=== PATIENT | female | born 1995 | race African-American/Black ===

== ENCOUNTER 2016-09-11 15:08 | Inpatient (IN) | payer MEDICAID ==
[~2016-09-11] VITALS: Ht 154.9 cm; Wt 84.1 kg
[2016-09-27] MEDS ORDERED: PRENATAL MVI (22:21)
[2016-10-08] VITALS (40 sets, daily range): BP systolic 83–146; BP diastolic 6–91; PULSE 80–139; TEMP 97.9–99
[2016-10-08] MEDS ORDERED: ZANTAC 7575 MG PO (07:48)
[2016-10-08 08:26] LABS: BASO % 0.4 % (0.0-2.0); EOS # 0.1 (0.0-0.7); GRAN # 4.2 (1.4-6.5); GRAN % 59.8 % (42.2-75.2); LYMPH % 28.5 % (20.0-51.0); MEAN CELL VOLUME 84 fl (80.0-100.0); MEAN CORPUSCULAR HGB CONC 32 g/dl (33.0-37.0); MEAN PLATELET VOLUME 14.1 fl (7.4-10.4); MONO # 0.7 (0.1-0.6); PLATELET COUNT 158 K/mm3 (130-400); RED BLOOD COUNT 3.51 M/mm3 (4.10-5.30); REDCELL DISTRIBUTION WIDTH-CV 15.7 % (11.5-14.5); WHITE BLOOD COUNT 7.1 K/mm3 (4.8-10.8)
[2016-10-08 08:28] LABS: HEMATOCRIT 29.4 % (37.0-47.0); HEMOGLOBIN 9.5 g/dl (12.5-16.0); MEAN CORPUSCULAR HEMOGLOBIN 27 pg (27.0-31.0)
[2016-10-09 00:10] VITALS: BP 113/80; PULSE 75; TEMP 98.3
[2016-10-09 04:00] VITALS: BP 119/77; PULSE 119; TEMP 98
[2016-10-09] MEDS ORDERED: PERCOCET 325 MG1 TA2 PO (09:46)
[2016-10-09] MEDS ORDERED: IBU800 M1 PO (09:46)
[2016-10-09 12:00] VITALS: BP 110/82; PULSE 84; TEMP 98.6
== END 2016-10-09 19:55 | disposition home or self-care (01) | DRG 775 ==
LOC: LDR 10-08 07:22 → OB 10-08 20:00 → EDSTATUS 10-15 08:59 → LDRO 10-15 15:07
PROVIDERS: Obstetrics & Gynecology
PROC: 10E0XZZ Delivery of Products of Conception, External Approach (ICD-10-PCS; principal; 2016-10-08)
PROC: 3E033VJ Introduction of Other Hormone into Peripheral Vein, Percutaneous Approach (ICD-10-PCS; 2016-10-08)
DX: O75.89 Other specified complications of labor and delivery (principal); Z3A.39 39 weeks gestation of pregnancy; Z37.0 Single live birth
CPT/HCPCS: J2590; J2795; J7120

== ENCOUNTER 2016-09-27 21:13 | Outpatient (CLI) | payer MEDICAID ==
[2016-09-27 22:12] VITALS: BP 133/87; PULSE 121; TEMP 98.7
[2016-09-27] MEDS ORDERED: PRENATAL MVI (22:21)
[2016-09-27 22:27] LABS: PH 7 (5-8); SQUAMOUS EPITHELIAL 0-2 /hpf; URINE APPEARANCE Clear; URINE BACTERIA None Seen /hpf; URINE BILIRUBIN Negative (NEGATIVE); URINE BLOOD Negative (NEGATIVE); URINE COLOR Yellow; URINE GLUCOSE Negative (NEGATIVE); URINE KETONE Negative (NEGATIVE); URINE RBC 0-2 /hpf; URINE UROBILINOGEN >=4.0 mg/dL (NEGATIVE); URINE WBC 0-2 /hpf
[2016-09-27 22:40] VITALS: BP 127/85; PULSE 96
== END 2016-09-27 22:50 | disposition home or self-care (01) ==
LOC: LDRO 21:13
PROVIDERS: Obstetrics & Gynecology
DX: O99.89 Other specified diseases and conditions complicating pregnancy, childbirth and the puerperium (principal); M54.9 Dorsalgia, unspecified; Z3A.37 37 weeks gestation of pregnancy

== ENCOUNTER 2019-02-21 09:51 | Outpatient (CLI) | payer MEDICAID ==
[~2019-02-21] VITALS: Ht 154.9 cm; Wt 77.7 kg
--- NOTE | 2019-02-21 09:44 | NUR ---
0944-G6L4 34.[address] Arora's ambulatory to unit with complaint of elevated BP through the weekend with a history of PIH and Pre-E with previous pregnancies, shortness of breath this am, and headach off and on since the weekend. Placed on EFM. Reactive FHR. Reports good movement and denies leaking of fluid, vaginal bleeding or contractions. Assessment complete. 1007-Updated Dr. Arora on patient, see physician notification.
[~2019-02-21 09:51] MED LIST: IBU800 M1 PO; PERCOCET 325 MG1 TA2 PO; PRENATAL MVI; ZANTAC 7575 MG PO
[2019-02-21 09:53] VITALS: BP 133/88; PULSE 90; TEMP 98.2
[2019-02-21 10:00] VITALS: BP 118/81; PULSE 117; TEMP 98.2
[2019-02-21] MEDS ORDERED: TYLENOL 500MG500 MG PO (10:02)
[2019-02-21 10:15] VITALS: BP 112/82; PULSE 97
[2019-02-21 10:30] VITALS: BP 112/80; PULSE 103
[2019-02-21 10:30] LABS: COLLECTION METHOD CLEAN CATCH
[2019-02-21 10:42] LABS: HEMOGLOBIN 11.4 g/dl (12.5-16.0); MEAN CELL VOLUME 95 fl (80.0-100.0); MEAN CORPUSCULAR HEMOGLOBIN 32 pg (27.0-31.0); MEAN CORPUSCULAR HGB CONC 33 g/dl (33.0-37.0); MEAN PLATELET VOLUME 13.5 fl (7.4-10.4); PLATELET COUNT 123 K/mm3 (130-400); RED BLOOD COUNT 3.61 M/mm3 (4.10-5.30); REDCELL DISTRIBUTION WIDTH-CV 13.5 % (11.5-14.5)
[2019-02-21 10:43] LABS: ALANINE AMINOTRANSFERASE < 6 U/L (9-52); ALBUMIN 3.6 gm/dL (3.5-5.0); ALKALINE PHOSPHATASE 92 U/L (50-136); ANION GAP 9 mmol/L (7-16); AST,SGOT 24 U/L (15-37); BILIRUBIN,TOTAL 0.2 mg/dL (0.0-1.0); BLOOD UREA NITROGEN 4 mg/dL (7-17); CARBON DIOXIDE 24 mmol/L (22-30); CHLORIDE 105 mmol/L (98-107); CREATININE, serum 0.54 (0.52-1.25); GLUCOSE 96 mg/dL (74-106); POTASSIUM 3.6 mmol/L (3.4-5.0); SODIUM 138 mmol/L (137-145)
[2019-02-21 10:44] LABS: MUCOUS Present /lpf; PH 7 (5-8); URINE APPEARANCE Clear; URINE BACTERIA Rare /hpf; URINE BILIRUBIN Negative (NEGATIVE); URINE BLOOD 1+ (NEGATIVE); URINE COLOR Yellow; URINE GLUCOSE 1+ (NEGATIVE); URINE KETONE Trace (NEGATIVE); URINE LEUKOCYTE ESTERASE Negative (NEGATIVE); URINE NITRATE Negative (NEGATIVE); URINE PROTEIN(semi-quant) Negative (NEGATIVE); URINE RBC 0-2 /hpf; URINE UROBILINOGEN Negative (NEGATIVE); URINE WBC 0-2 /hpf
[2019-02-21 10:45] VITALS: BP 107/65; PULSE 100
[2019-02-21 10:49] LABS: HEMATOCRIT 34.3 % (37.0-47.0)
--- NOTE | 2019-02-21 10:52 | NUR ---
1052-Updated Dr. Arora on lab results and reviewed VS. Orders to discharge patient home. 1055-Paitent off EFM. Reviewed discharge instructions with patient, denies questions. 1105-Ambulatory off Unit.
[2019-02-21 10:55] VITALS: BP 111/65; PULSE 93
== END 2019-02-21 11:05 | disposition home or self-care (01) ==
LOC: LDRO 09:51 → LDR 09:51 → LDRO 11:05
PROVIDERS: Obstetrics & Gynecology
DX: O13.3 Gestational [pregnancy-induced] hypertension without significant proteinuria, third trimester (principal); O99.89 Other specified diseases and conditions complicating pregnancy, childbirth and the puerperium; R06.02 Shortness of breath; Z3A.34 34 weeks gestation of pregnancy
CPT/HCPCS: OP

== ENCOUNTER 2019-03-16 05:42 | Inpatient (IN) | payer MEDICAID ==
[~2019-03-16] VITALS: Ht 154.9 cm; Wt 78.6 kg
[2019-03-16] VITALS (35 sets, daily range): BP systolic 110–167; BP diastolic 62–113; PULSE 73–122; TEMP 97.6–98.1
[~2019-03-16 05:42] MED LIST changes: +TYLENOL 500MG500 MG PO
--- NOTE | 2019-03-16 11:30 | NUR ---
Patient presents to floor for inductin of labor, patient denies any leaking of fluid, bleedings, does report contractions that are consistent. Patient assesment complete, IV started in left wrist. Labs obtained and fluid started. Consents signed and completed. Family at bedside, will continue with induction. Patient denies and questions or concerns at this time.
[2019-03-16 11:37] LABS: BASO % 0.3 % (0.0-2.0); EOS # 0.1 (0.0-0.7); EOS % 1.3 % (0-4.0); GRAN % 65.6 % (42.2-75.2); HEMATOCRIT 36.1 % (37.0-47.0); HEMOGLOBIN 12.2 g/dl (12.5-16.0); LYMPH # 1.5 (1.2-3.4); MEAN CELL VOLUME 94 fl (80.0-100.0); MEAN CORPUSCULAR HEMOGLOBIN 32 pg (27.0-31.0); MEAN CORPUSCULAR HGB CONC 34 g/dl (33.0-37.0); MEAN PLATELET VOLUME 13.9 fl (7.4-10.4); MONO # 0.5 (0.1-0.6); MONO % 8.5 % (1.7-9.3); PLATELET COUNT 130 K/mm3 (130-400); RED BLOOD COUNT 3.86 M/mm3 (4.10-5.30); REDCELL DISTRIBUTION WIDTH-CV 13.2 % (11.5-14.5)
--- NOTE | 2019-03-16 13:15 | NUR ---
Patient up to edge of bed for placement of epidural. Josue Boyle DIRECTOR RECREATION at patient bedside, discuss procedure, patient denies questions or concerns.
--- NOTE | 2019-03-16 13:45 | NUR ---
1343- Test dose given, patient tolerated well. oatient laid down in wedge left. will continue to monitor.
--- NOTE | 2019-03-16 14:00 | NUR ---
at patient bedside, AROM with clear fluid noted, SVE completed, patient tolerated well. Discuss plan of care, patient agreeable, will continue with induction. Will continue to moniotr.
--- NOTE | 2019-03-16 16:00 | NUR ---
1550- Family of patient shouts out door its coming, Nurse and physician into room. checks patient noted complete Room set up for delivery, nursery staff notified. Patient begins to instinctly push. 1557- Delivery of viable female , Infant to care of nursery staff after placed on abdomen. Physician clamps and cuts cord. remains on mothers abdomen. 1559- Delivery of placenta, fundal massage performed as indicated, pitocin started per perotocol. 1600- Noted increased bleeding, physician notified while in patient room. Manaual exam noted with retained pieces of placenta. Fundal massage continued, picition infusing. Physician orders Cytotec 800mg rectally to be given, placed by physician. Fundal massage continues. Physician remains at patient bedside for monitoring. Noted still with clots and bleeding, electroencephalograph technician brings in currette, physician complets manual removal with currette of uterus at bedside. Patient tolerated well, with anesthesia at bedside. 1615- Further bleeding still noted, hemabate orders received per .Will continue to monitor.
[2019-03-17] VITALS: BP 109/66; PULSE 72; TEMP 98.1
[2019-03-17 04:35] VITALS: BP 90/51; PULSE 74; TEMP 98
[2019-03-17 08:21] VITALS: BP 102/63; PULSE 76; TEMP 98.8
--- NOTE | 2019-03-17 10:09 | NUR ---
Initial visit; Mom thanked [employer] Manager for offering congratulations and God's blessings for the of her daughter. [employer] Manager thanked family for choosing [facility].
[2019-03-17 12:24] VITALS: BP 106/65; PULSE 78; TEMP 98
[2019-03-17 15:55] VITALS: BP 107/64; PULSE 82; TEMP 98.6
[2019-03-17 20:30] VITALS: BP 101/60; PULSE 76; TEMP 99
[2019-03-18 08:10] VITALS: BP 113/71; PULSE 90; TEMP 97.4
[2019-03-18] MEDS ORDERED: IBU600 MG PO (09:07)
[2019-03-18 11:31] VITALS: BP 128/77; PULSE 79; TEMP 97.9
--- NOTE | 2019-03-18 12:15 | NUR ---
Patient discharge instructions reviewed. Verbalizes understanding. and parents escorted out to private vehicle.
== END 2019-03-18 12:20 | disposition home or self-care (01) | DRG 807 ==
LOC: LDR 05:42 → OB 10:42
PROVIDERS: ADMIT Obstetrics & Gynecology
PROC: 10907ZC Drainage of Amniotic Fluid, Therapeutic from Products of Conception, Via Natural or Artificial Opening (ICD-10-PCS; principal; 2019-03-16)
PROC: 10E0XZZ Delivery of Products of Conception, External Approach (ICD-10-PCS; 2019-03-16)
PROC: 3E033VJ Introduction of Other Hormone into Peripheral Vein, Percutaneous Approach (ICD-10-PCS; 2019-03-16)
DX: O13.3 Gestational [pregnancy-induced] hypertension without significant proteinuria, third trimester (principal); Z37.0 Single live birth; O69.1XX0 Labor and delivery complicated by cord around neck, with compression, not applicable or unspecified; O62.2 Other uterine inertia; O99.62 Diseases of the digestive system complicating childbirth; O99.824 Streptococcus B carrier state complicating childbirth; K21.9 Gastro-esophageal reflux disease without esophagitis; Z3A.38 38 weeks gestation of pregnancy
CPT/HCPCS: J2405; J2540; J2590; J7120

== ENCOUNTER 2020-01-30 20:58 | Emergency (ER) | payer MEDICAID ==
[~2020-01-30] VITALS: Ht 154.9 cm; Wt 81.8 kg
[~2020-01-30 20:58] MED LIST changes: +IBU600 MG PO
[2020-01-30 21:21] VITALS: BP 117/84; TEMP 98.3
[2020-01-30] MEDS ORDERED: ANUSOL HC CREAM30 GM TP (21:46)
[2020-01-30 22:00] VITALS: PULSE 78
== END 2020-01-30 22:00 | disposition home or self-care (01) ==
LOC: COL.ER 20:58
DX: K64.4 Residual hemorrhoidal skin tags (principal)

== ENCOUNTER 2020-02-22 11:04 | Inpatient (IN) | payer MEDICAID ==
[~2020-02-22] VITALS: Ht 154.9 cm; Wt 83.2 kg
[2020-02-22] VITALS (19 sets, daily range): BP systolic 108–165; BP diastolic 57–103; PULSE 70–110; TEMP 97.9–98.3
--- NOTE | 2020-02-22 10:56 | NUR ---
Pt came over from office after being seen by physician. Pt arrives ambulatory to unit with spouse, changed into gown, EFM explained and placed, vitals taken. Pt reports contractions since yesterday with bloody show. Pt denies leaking of fluid, reports good movement. SVE per Renea Ward RN 4-5/80/-2
[~2020-02-22 11:04] MED LIST changes: +ANUSOL HC CREAM30 GM TP
[2020-02-22] MEDS ORDERED: TYLENOL 500MG500 MG PO (11:06)
--- NOTE | 2020-02-22 13:22 | NUR ---
Dr. Reyes to pt bedside at 1315. Explained FHR strip and need to deliver baby. Orders recieved to admit pt and induce labor.
[2020-02-22 14:35] LABS: BASO % 0.3 % (0.0-2.0); EOS % 0.5 % (0-4.0); GRAN # 3.6 (1.4-6.5); GRAN % 60.3 % (42.2-75.2); HEMATOCRIT 42.3 % (37.0-47.0); HEMOGLOBIN 14.1 g/dl (12.5-16.0); LYMPH # 1.7 (1.2-3.4); LYMPH % 29.3 % (20.0-51.0); MEAN CELL VOLUME 94 fl (80.0-100.0); MEAN CORPUSCULAR HEMOGLOBIN 31 pg (27.0-31.0); MEAN CORPUSCULAR HGB CONC 33 g/dl (33.0-37.0); MONO # 0.6 (0.1-0.6); MONO % 9.4 % (1.7-9.3); PLATELET COUNT 141 K/mm3 (130-400); RED BLOOD COUNT 4.49 M/mm3 (4.10-5.30); REDCELL DISTRIBUTION WIDTH-CV 13.1 % (11.5-14.5)
--- NOTE | 2020-02-22 16:04 | NUR ---
1540 - Pt called out, "my water broke". RN at bedside, copious amounts of clear fluid noted on pad under pt. SVE /-1. Dr. Reyes notified.
--- NOTE | 2020-02-22 16:51 | NUR ---
1551 - Dr. Reyes to pt bedside. SVE per physician 7-8/100/-1. Physician to remain on unit, RN remains at bedside. FHT WNL with variable decels with contractions, moderate variability. 1600 - Pt reporting increased pressure with contractions. SVE 8/100/-1. RN remains at bedside. 1607 - Pt states "I think you should get the doctor now". Pt reporting great pressure with contractions, continuing between. SVE 9-10/100/-[address] Reyes called to pt room, Altagracia Robles RN of nursery called to bedside. 1611 - SVE per physician /100/-1. Bed broken down, pt prepped for delivery. 1613 - Male infant delivered spontaneoulsy by Dr. Reyes. placed on mother's abdomen where dried and stimulated. Care of transferred to Altagracia Robles RN of nursery. Cord blood collected by Dr. Reyes. Lidocaine adminstered by Dr. Reyes for perineal repair. 1620 - Placenta delivered spontaneously. Pitocin started per protocol. Bilateral labial laceration repair by Dr. Reyes. Pericare provided, ice pack placed, pt repositioned for comfort.
--- NOTE | 2020-02-22 18:17 | NUR ---
1800 - Pt up to bathroom, ambulated independently. Pt voided 300ml, pericare provided, clean panties and pad placed, new gown provided. Pt ambulated independently back to bed, positioned self for comfort. Denies further needs at this time.
--- NOTE | 2020-02-22 19:15 | NUR ---
Up to ambulate to room. Steady gait. Oriented to new room, plan of care.
[2020-02-23] VITALS: BP 108/64; PULSE 76; TEMP 98.4
[2020-02-23 05:00] VITALS: BP 122/88; PULSE 90; TEMP 98.7
[2020-02-23 08:05] VITALS: BP 111/68; PULSE 80; TEMP 98
[2020-02-23] MEDS ORDERED: IBU600 MG PO (09:03)
[2020-02-23 11:40] VITALS: BP 118/78; PULSE 79; TEMP 98.1
--- NOTE | 2020-02-23 15:00 | NUR ---
Patient offered COVID-19 swab. Refuses.
[2020-02-23 17:36] VITALS: BP 128/86; PULSE 63; TEMP 98.4
[2020-02-23 20:40] VITALS: BP 153/94; PULSE 68; TEMP 98.5
[2020-02-24 06:45] VITALS: BP 136/102; PULSE 78; TEMP 98
[2020-02-24 09:14] VITALS: BP 135/88
--- NOTE | 2020-02-24 10:09 | NUR ---
Initial visit; Parents thanked [employer] Operator for offering congratulations and God's blessings for the of their son. [employer] Operator thanked family for choosing [facility].
--- NOTE | 2020-02-24 15:45 | NUR ---
Sits in chair. Ibuprofen 600 mg given per request and as ordered.
== END 2020-02-24 16:00 | disposition home or self-care (01) | DRG 807 ==
LOC: LDRO 11:04 → LDR 13:25 → OB 13:25
PROVIDERS: ADMIT Obstetrics & Gynecology
PROC: 10E0XZZ Delivery of Products of Conception, External Approach (ICD-10-PCS; principal; 2020-02-22)
PROC: 0UQMXZZ Repair Vulva, External Approach (ICD-10-PCS; 2020-02-22)
DX: O99.214 Obesity complicating childbirth (principal); Z37.0 Single live birth; E66.9 Obesity, unspecified; O76 Abnormality in fetal heart rate and rhythm complicating labor and delivery; Z3A.37 37 weeks gestation of pregnancy
CPT/HCPCS: J2540; J2590; J7120

== ENCOUNTER 2020-12-13 18:30 | Emergency (ER) | payer MEDICAID ==
[~2020-12-13] VITALS: Ht 154.9 cm; Wt 75.9 kg
[2020-12-13 18:35] VITALS: TEMP 97.2
[2020-12-13 19:48] LABS: BASO % 0.6 % (0.0-2.0); EOS # 0.1 (0.0-0.7); EOS % 1.7 % (0-4.0); GRAN % 56.9 % (42.2-75.2); HEMATOCRIT 38.7 % (37.0-47.0); HEMOGLOBIN 12.6 g/dl (12.5-16.0); LYMPH # 2.3 (1.2-3.4); LYMPH % 32.5 % (20.0-51.0); MEAN CELL VOLUME 95 fl (80.0-100.0); MEAN CORPUSCULAR HEMOGLOBIN 31 pg (27.0-31.0); MEAN CORPUSCULAR HGB CONC 33 g/dl (33.0-37.0); MEAN PLATELET VOLUME 12.8 fl (7.4-10.4); MONO # 0.6 (0.1-0.6); PLATELET COUNT 195 K/mm3 (130-400); RED BLOOD COUNT 4.07 M/mm3 (4.10-5.30); REDCELL DISTRIBUTION WIDTH-CV 13.1 % (11.5-14.5)
[2020-12-13 19:55] LABS: ALBUMIN 4.2 gm/dL (3.5-5.0); BILIRUBIN,TOTAL 0.2 mg/dL (0.0-1.0); CALCIUM 9.4 mg/dL (8.4-10.2); CREATININE, serum 0.69 (0.52-1.25); POTASSIUM 3.9 mmol/L (3.4-5.0); TOTAL PROTEIN 7.9 gm/dL (6.4-8.2)
[2020-12-13 21:17] VITALS: BP 118/77; PULSE 69
[2020-12-13 21:22] LABS: COLLECTION METHOD CLEAN CATCH
[2020-12-13 21:30] LABS: PH 7 (5-8); URINE APPEARANCE Clear; URINE BACTERIA None Seen /hpf; URINE BILIRUBIN Negative (NEGATIVE); URINE BLOOD 3+ (NEGATIVE); URINE COLOR Amber; URINE GLUCOSE Negative (NEGATIVE); URINE KETONE Negative (NEGATIVE); URINE LEUKOCYTE ESTERASE Negative (NEGATIVE); URINE NITRATE Negative (NEGATIVE); URINE PROTEIN(semi-quant) 2+ (NEGATIVE); URINE RBC >50 /hpf; URINE UROBILINOGEN Negative (NEGATIVE); URINE WBC 20-50 /hpf
== END 2020-12-13 23:20 | disposition home or self-care (01) ==
LOC: COL.ER 18:30
PROVIDERS: Emergency Medicine
DX: O20.0 Threatened abortion (principal); Z3A.10 10 weeks gestation of pregnancy
CPT/HCPCS: J7030

== ENCOUNTER 2021-09-20 04:39 | Inpatient (IN) | payer MEDICAID ==
[2021-09-20] VITALS (26 sets, daily range): BP systolic 124–163; BP diastolic 68–99; PULSE 68–105; TEMP 97.6–98.8
[~2021-09-20] VITALS: Ht 155 cm; Wt 83.6 kg
--- NOTE | 2021-09-20 05:00 | NUR ---
0450 - PATIENT ARRIVED TO R6 VIA WHEELCHAIR ACCOMPANIED BY SPOUSE. PATIENT REPORTS CONTRACTIONS EVERY 7MINUTES. PATIENT DENIES LEAKING OF FLUID OR BLOODY SHOW. PATIENT ORIENTED TO ROOM. PATIENT CHANGES INTO GOWN. 0505 - PLAN OF CARE DISCUSSED AND PATIENT AGREEABLE TO PLAN. QUESTIONS ANSWERED. PATIENT ON MONITOR. 0510 - SVE PERFORMED. -/-2. PLAN OF CARE DISCUSSED. CARE ONGOING.
[2021-09-20] MEDS ORDERED: TRANDATE 200MG200 MG PO (05:18)
--- NOTE | 2021-09-20 05:45 | NUR ---
EFM TRACING INDESCERNIBLE DUE TO MATERNAL POSITION. MONITOR ADJUSTED. CARE ONGOING.
[2021-09-20 06:05] LABS: BASO % 0.8 % (0.0-2.0); EOS % 0.8 % (0.0-4.0); GRAN # 2.7 K/mm3 (1.4-6.5); GRAN % 51.1 % (42.2-75.2); HEMOGLOBIN 11.6 g/dl (12.5-16.0); LYMPH # 1.9 K/mm3 (1.2-3.4); LYMPH % 36.6 % (20.0-51.0); MEAN CELL VOLUME 92 fl (80.0-100.0); MEAN CORPUSCULAR HEMOGLOBIN 31 pg (27-31); MEAN CORPUSCULAR HGB CONC 34 g/dl (33.0-37.0); MEAN PLATELET VOLUME 14.1 fl (7.4-10.4); MONO # 0.6 K/mm3 (0.1-0.6); MONO % 10.5 % (1.7-9.3); PLATELET COUNT 123 K/mm3 (130-400); RED BLOOD COUNT 3.76 M/mm3 (4.10-5.30); REDCELL DISTRIBUTION WIDTH-CV 13.5 % (11.5-14.5)
[2021-09-20 06:06] LABS: HEMATOCRIT 34.4 % (37.0-47.0)
--- NOTE | 2021-09-20 06:20 | NUR ---
This RN at bedside and given report. Patient off monitor to void. Patient states feeling pressure. SVE per Yazmin RN-9/100/-2 and bulgy bag felt. Dr. Cox at nurses station and updated. Patient prepped for vaginal delivery. 0625: FHR monitor intermittently tracing maternal heart rate due to maternal position. 0655: Patient feeling pressure and urge to push. SVE-10/100/[address] Reyes at nurses station and updated. 0700: Dr. Reyes at bedside and patient set up for delivery. Plan of care discussed with patient. 0705: AROM at this time with clear fluid noted. Patient pushing with contractions 0715: Dr. Reyes orders to start pitocin at this time. Pitocin started per protocol at 2mU/hr. 0719: Spontaneous vaginal delivery of viable female, head followed by body. to patients abdomen and D. Jagdish RN assumes care of infant. Cord clamped x2 by physician and cut by FOB, cord blood obtained. 0724: Spontaneous delivery of placenta and pitocin bolus started per protocol. Dr. Reyes examines placenta and discovers abnormality, and retained placenta noted. Perineum intact. Dr. Reyes discusses the need for D&C and patient agrees with plan. Patient to OR and assisted onto OR bed.
[2021-09-20 06:21] LABS: BILIRUBIN,TOTAL 0.5 mg/dL (0.2-1.2); CALCIUM 9.4 mg/dL (8.4-10.2); CREATININE, serum 0.76 mg/dL (0.57-1.11); POTASSIUM 3.7 mmol/L (3.5-4.5)
[2021-09-21 04:00] VITALS: BP 112/71; PULSE 62; TEMP 97.9
[2021-09-21 05:00] LABS: BASO % 0.3 % (0.0-2.0); EOS # 0.1 K/mm3 (0.0-0.7); EOS % 0.7 % (0.0-4.0); GRAN % 65.1 % (42.2-75.2); LYMPH # 2.3 K/mm3 (1.2-3.4); LYMPH % 25.1 % (20.0-51.0); MEAN CELL VOLUME 93 fl (80.0-100.0); MEAN CORPUSCULAR HGB CONC 33 g/dl (33.0-37.0); MEAN PLATELET VOLUME 14.4 fl (7.4-10.4); MONO # 0.8 K/mm3 (0.1-0.6); MONO % 8.5 % (1.7-9.3); PLATELET COUNT 111 K/mm3 (130-400); RED BLOOD COUNT 2.93 M/mm3 (4.10-5.30); REDCELL DISTRIBUTION WIDTH-CV 13.4 % (11.5-14.5)
[2021-09-21 05:08] LABS: HEMATOCRIT 27.3 % (37.0-47.0); HEMOGLOBIN 9.1 g/dl (12.5-16.0); MEAN CORPUSCULAR HEMOGLOBIN 31 pg (27-31)
[2021-09-21] MEDS ORDERED: IBU600 MG PO (07:09)
[2021-09-21 07:45] VITALS: BP 109/78; PULSE 66; TEMP 98
--- NOTE | 2021-09-21 10:53 | NUR ---
DISCHARGE TEACHING COMPLETED. EDUCATED ON FOLLLOW UP APPOINTMENT AND PRESCRIPTION. QUESTIONS INVITED AND ANSWERED.
--- NOTE | 2021-09-21 11:03 | NUR ---
Initial visit; Patient thanked Litigation Counsel for offering congratulations and God's blessings for the of her daughter. Litigation Counsel thanked mom for choosing our hospital. Harshal stated she has always had excellent care here at [facility].
== END 2021-09-21 11:30 | disposition home or self-care (01) | DRG 797 ==
LOC: LDRO 04:39 → LDR 05:46 → OB 05:46
PROVIDERS: Obstetrics & Gynecology; ADMIT Obstetrics & Gynecology
PROC: 10E0XZZ Delivery of Products of Conception, External Approach (ICD-10-PCS; principal; 2021-09-20)
PROC: 10D17ZZ Extraction of Products of Conception, Retained, Via Natural or Artificial Opening (ICD-10-PCS; 2021-09-20)
PROC: 10907ZC Drainage of Amniotic Fluid, Therapeutic from Products of Conception, Via Natural or Artificial Opening (ICD-10-PCS; 2021-09-20)
DX: O10.92 Unspecified pre-existing hypertension complicating childbirth (principal); O72.0 Third-stage hemorrhage; Z37.0 Single live birth; O99.214 Obesity complicating childbirth; O99.62 Diseases of the digestive system complicating childbirth; K21.9 Gastro-esophageal reflux disease without esophagitis; Z3A.37 37 weeks gestation of pregnancy
CPT/HCPCS: J0330; J1885; J2405; J2590; J2704; J3010; J7120